=== PATIENT | male | born 1970 | race Caucasian/White ===

== ENCOUNTER 2018-07-18 16:24 | Inpatient (IN) | payer OTHER ==
[2018-07-18 20:25] LABS: ADD MAN DIFF? NO
[2018-07-18 20:27] LABS: WHITE BLOOD COUNT 11.6 10^3/ul (4.8-10.8)
[2018-07-18 20:27] LABS: BASOPHILS % 0.3 % (0.0-2.0); EOSINOPHILS % 0.2 % (0.0-7.0); HEMATOCRIT 47.2 % (42.0-52.0); HEMOGLOBIN 15.7 g/dl (14.0-18.0); LYMPHOCYTES # 0.9 10^3/ul (0.8-2.9); LYMPHOCYTES % 7.3 % (15.0-51.0); MEAN CORPUSCULAR HEMOGLOBIN 30.3 pg (29.0-33.0); MEAN CORPUSCULAR HGB CONC 33.3 g/dl (32.0-37.0); MEAN CORPUSCULAR VOLUME 91.1 fl (82.0-101.0); MEAN PLATELET VOLUME 10.1 fl (7.4-10.4); MONOCYTE # 1.2 10^3/ul (0.3-0.9); MONOCYTES % 10.2 % (0.0-11.0); NEUTROPHIL # 9.5 10^3/ul (1.6-7.5); NEUTROPHILS % 81.7 % (39.0-77.0); PLATELET COUNT 128 10^3/UL (140-415); RED BLOOD COUNT 5.18 10^6/ul (4.70-6.10); RED CELL DISTRIBUTION WIDTH 12.5 % (11.5-14.5)
[2018-07-18] MEDS: SODIUM CHLORIDE 0.9% 1L BAG IV* (20:29)
[2018-07-18] MEDS: PIPER-TAZO 3.375 GM IV (PMX) 100 ML IVPB ×2 (20:29→20:41)
[2018-07-18] MEDS: ACETAMINOPHEN 325 MG TAB PO (20:29)
[2018-07-18] MEDS: morphine 4 MG/ML VIAL IV (20:30)
[2018-07-18] MEDS: ONDANSETRON 4 MG INJ IV (20:30)
[2018-07-18] MEDS: FAMOTIDINE 20 MG INJ IV (20:30)
[2018-07-18 20:45] LABS: LACTIC ACID 1.5 mmol/L (0.5-2.0)
[2018-07-18 20:47] LABS: ALANINE AMINOTRANSFERASE 15 IU/L (13-69); ALBUMIN 4.4 g/dl (3.3-4.9); ALBUMIN/GLOBULIN RATIO 1.15; ALKALINE PHOSPHATASE 91 IU/L (42-121); ANION GAP 16 (8-16); ASPARTATE AMINO TRANSFERASE 26 IU/L (15-46); BILIRUBIN,INDIRECT 0.7 mg/dl (0-1.1); BILIRUBIN,TOTAL 0.7 mg/dl (0.2-1.3); BLOOD UREA NITROGEN 8 mg/dl (7-20); CALCIUM 9.7 mg/dl (8.4-10.2); CARBON DIOXIDE 21 mmol/L (21-31); CHLORIDE 105 mmol/L (97-110); CREATININE 0.62 mg/dl (0.61-1.24); GLUCOSE 133 mg/dl (70-220); POTASSIUM 4.1 mmol/L (3.5-5.1); SODIUM 138 mmol/L (135-144); TOTAL PROTEIN 8.2 g/dl (6.1-8.1)
[2018-07-18 20:58] LABS: TROPONIN-I < 0.010 ng/ml (0.000-0.120)
[2018-07-18] MEDS: CEFTRIAXONE 1 GM/50 ML (PMX) 50 ML IVPB (21:23)
[2018-07-18] MEDS ORDERED: NACL 0.9% 3 ML SYG IV (21:30)
[2018-07-18 21:48] LABS: ADD UMIC YES; UR ASCORBIC ACID NEGATIVE (NEGATIVE); UR BACTERIA FEW /HPF (NONE SEEN); UR BILIRUBIN (Dip) NEGATIVE (NEGATIVE); UR BLOOD (Dip) 3+ mg/dL (NEGATIVE); UR CLARITY CLOUDY (CLEAR); UR COLOR YELLOW (YELLOW); UR GLUCOSE (Dip) NEGATIVE (NEGATIVE); UR KETONES (Dip) NEGATIVE (NEGATIVE); UR LEUKOCYTE ESTERASE (Dip) 3+ Leu/ul (NEGATIVE); UR NITRITE (Dip) POSITIVE (NEGATIVE); UR RBC > 182 /HPF (0-5); UR TOTAL PROTEIN (Dip) 1+ mg/dl (NEGATIVE); UR UROBILINOGEN (Dip) NEGATIVE (NEGATIVE); UR WBC > 182 /HPF (0-5)
[2018-07-18 22:08] LABS: INR 1.26; PARTIAL THROMBOPLASTIN TIME 26.5 Sec (25.0-35.0); PT RATIO 1.3
[2018-07-18] MEDS: VANCOMYCIN 1.25 GM in SOD CHLORIDE 0.9% 250 ML IVPB (22:30)
[2018-07-18] MEDS ORDERED: MEROPENEM 1 GM/50ML(PMX) 50 ML IVPB (23:00)
[2018-07-18] MEDS ORDERED: VANCOMYCIN IV PER PHARMACY XX (23:00)
[2018-07-19] MEDS: HYDROCODONE/APAP (5/325) TAB PO (00:10)
[2018-07-19] MEDS: SOD CHLORIDE 0.9% 1,000 ML IV (00:53)
[2018-07-19 01:05] LABS: LACTIC ACID 0.6 mmol/L (0.5-2.0)
[2018-07-19] MEDS: MEROPENEM 1 GM/50ML(PMX) 50 ML IVPB ×3 (03:49→20:40)
[2018-07-19] MEDS ORDERED: ACETAMINOPHEN 500 MG TAB PO (05:00)
[2018-07-19] MEDS: GABAPENTIN 400 MG CAP PO ×4 (05:09→20:41)
[2018-07-19 06:08] LABS: ADD MAN DIFF? NO
[2018-07-19] MEDS: VANCOMYCIN 750 MG in SOD CHLORIDE 0.9% 150 ML IVPB ×2 (06:16→14:52)
[2018-07-19 06:51] LABS: ALANINE AMINOTRANSFERASE 23 IU/L (13-69); ALBUMIN 3.2 g/dl (3.3-4.9); ALBUMIN/GLOBULIN RATIO 1.06; ALKALINE PHOSPHATASE 67 IU/L (42-121); ANION GAP 13 (8-16); ASPARTATE AMINO TRANSFERASE 30 IU/L (15-46); BILIRUBIN,INDIRECT 0.6 mg/dl (0-1.1); BILIRUBIN,TOTAL 0.6 mg/dl (0.2-1.3); BLOOD UREA NITROGEN 7 mg/dl (7-20); CALCIUM 7.9 mg/dl (8.4-10.2); CARBON DIOXIDE 19 mmol/L (21-31); CHLORIDE 112 mmol/L (97-110); CHOL/HDL RATIO 6.4 RATIO; CHOLESTEROL 154 mg/dl (100-200); CREATININE 0.54 mg/dl (0.61-1.24); GLUCOSE 100 mg/dl (70-220); HDL CHOLESTEROL 24 mg/dl (27-67); LDL CHOLESTEROL,CALCULATED 113 mg/dl; MAGNESIUM 1.9 mg/dl (1.7-2.5); POTASSIUM 3.8 mmol/L (3.5-5.1); SODIUM 140 mmol/L (135-144); TOTAL PROTEIN 6.2 g/dl (6.1-8.1); TRIGLYCERIDES 85 mg/dl (0-149)
[2018-07-19 07:00] LABS: HEMOGLOBIN A1C 5.4 % (0-5.9)
[2018-07-19] MEDS: DOCUSATE SODIUM 100 MG CAP PO ×2 (08:54→20:50)
[2018-07-19] MEDS: FISH OIL 1,000 MG CAP PO ×3 (08:54→20:41)
[2018-07-19] MEDS: GEMFIBROZIL 600 MG TAB PO ×2 (08:54→20:42)
[2018-07-19] MEDS: SENNA TAB PO (08:54)
[2018-07-19] MEDS: NIACIN 500 MG TAB PO (08:55)
[2018-07-19] MEDS: morphine 2 MG INJ IV ×4 (08:58→21:26)
[2018-07-19] MEDS: TOLTERODINE 2 MG TAB PO (09:00)
[2018-07-19] MEDS ORDERED: GLUCAGON 1 MG INJ IM (09:00)
[2018-07-19] MEDS ORDERED: DEXTROSE 50% 50 ML SYRINGE IV ×2 (09:00)
[2018-07-19] MEDS ORDERED: GLUCOSE GEL 15 GRAM TUBE BUCCAL (09:00)
[2018-07-19] MEDS ORDERED: GLUCOSE GEL 15 GRAM TUBE PO ×2 (09:00)
[2018-07-19 09:02] LABS: WHITE BLOOD COUNT 6.9 10^3/ul (4.8-10.8)
[2018-07-19 09:02] LABS: ABNORMAL IP MESSAGE 1; BASOPHILS % 0.4 % (0.0-2.0); EOSINOPHILS % 0.3 % (0.0-7.0); HEMATOCRIT 39.9 % (42.0-52.0); HEMOGLOBIN 13.3 g/dl (14.0-18.0); LYMPHOCYTES # 0.5 10^3/ul (0.8-2.9); LYMPHOCYTES % 7.4 % (15.0-51.0); MEAN CORPUSCULAR HEMOGLOBIN 30.8 pg (29.0-33.0); MEAN CORPUSCULAR HGB CONC 33.3 g/dl (32.0-37.0); MEAN CORPUSCULAR VOLUME 92.4 fl (82.0-101.0); MEAN PLATELET VOLUME 9.9 fl (7.4-10.4); MONOCYTE # 0.7 10^3/ul (0.3-0.9); MONOCYTES % 10.2 % (0.0-11.0); NEUTROPHIL # 5.6 10^3/ul (1.6-7.5); NEUTROPHILS % 81.3 % (39.0-77.0); PLATELET COUNT 93 10^3/UL (140-415); POSITIVE DIFF @See below; RED BLOOD COUNT 4.32 10^6/ul (4.70-6.10); RED CELL DISTRIBUTION WIDTH 12.5 % (11.5-14.5)
[2018-07-19] MEDS: INSULIN ASPART [NOVOLOG] 3 ML PEN SC ×3 (09:45→17:08)
[2018-07-19] MEDS: INSULIN GLARGINE [LANTus] (100 UNITS/ML) SYG SC (12:19)
[2018-07-19] MEDS: TOLTERODINE 1 MG TAB PO ×2 (13:00→23:04)
[2018-07-19] MEDS: ACETAMINOPHEN 325 MG TAB PO (14:59)
[2018-07-19] MEDS: SOD CHLORIDE 0.9% 500 ML IV (16:59)
[2018-07-19 18:16] LABS: LACTIC ACID 0.9 mmol/L (0.5-2.0)
[2018-07-19] MEDS: MIRTAZAPINE 15 MG TAB PO (20:41)
[2018-07-19 22:50] LABS: VANCOMYCIN,TROUGH 8.1 ug/ml (10.0-20.0)
[2018-07-19] MEDS: VANCOMYCIN 1 GM 250 ML IVPB (23:16)
[2018-07-20] MEDS: MEROPENEM 1 GM/50ML(PMX) 50 ML IVPB ×3 (03:24→19:56)
[2018-07-20 05:08] LABS: ADD MAN DIFF? NO
[2018-07-20 05:09] LABS: ABNORMAL IP MESSAGE 1; BASOPHILS % 0.6 % (0.0-2.0); HEMATOCRIT 36.8 % (42.0-52.0); HEMOGLOBIN 12.3 g/dl (14.0-18.0); LYMPHOCYTES # 0.7 10^3/ul (0.8-2.9); MEAN CORPUSCULAR HEMOGLOBIN 30.5 pg (29.0-33.0); MEAN CORPUSCULAR HGB CONC 33.4 g/dl (32.0-37.0); MEAN CORPUSCULAR VOLUME 91.3 fl (82.0-101.0); MEAN PLATELET VOLUME 9.9 fl (7.4-10.4); MONOCYTE # 0.5 10^3/ul (0.3-0.9); MONOCYTES % 15.2 % (0.0-11.0); NEUTROPHILS % 61.9 % (39.0-77.0); PLATELET COUNT 76 10^3/UL (140-415); POSITIVE DIFF @See below; RED BLOOD COUNT 4.03 10^6/ul (4.70-6.10); RED CELL DISTRIBUTION WIDTH 12.6 % (11.5-14.5)
[2018-07-20 05:09] LABS: WHITE BLOOD COUNT 3.2 10^3/ul (4.8-10.8)
[2018-07-20 05:50] LABS: ANION GAP 13 (8-16); BLOOD UREA NITROGEN 6 mg/dl (7-20); CALCIUM 7.8 mg/dl (8.4-10.2); CARBON DIOXIDE 22 mmol/L (21-31); CHLORIDE 108 mmol/L (97-110); GLUCOSE 98 mg/dl (70-220); MAGNESIUM 2.2 mg/dl (1.7-2.5); PHOSPHORUS 2.6 mg/dl (2.5-4.9); POTASSIUM 3.5 mmol/L (3.5-5.1); SODIUM 139 mmol/L (135-144)
[2018-07-20] MEDS: morphine 2 MG INJ IV ×5 (06:11→23:37)
[2018-07-20] MEDS: VANCOMYCIN 1 GM 250 ML IVPB ×3 (06:14→23:35)
[2018-07-20] MEDS: INSULIN ASPART [NOVOLOG] 3 ML PEN SC ×3 (07:30→17:38)
[2018-07-20] MEDS: GEMFIBROZIL 600 MG TAB PO ×2 (08:07→20:00)
[2018-07-20] MEDS: GABAPENTIN 400 MG CAP PO ×3 (08:07→20:00)
[2018-07-20] MEDS: TOLTERODINE 1 MG TAB PO ×2 (08:07→20:00)
[2018-07-20] MEDS: NIACIN 500 MG TAB PO (08:07)
[2018-07-20] MEDS: FISH OIL 1,000 MG CAP PO ×2 (08:07→20:00)
[2018-07-20] MEDS: SENNA TAB PO (08:07)
[2018-07-20] MEDS: DOCUSATE SODIUM 100 MG CAP PO ×2 (08:08→21:00)
[2018-07-20] MEDS: ENOXAPARIN 40 MG/0.4 ML SYG SC ×2 (08:11→10:45)
[2018-07-20] MEDS: ONDANSETRON 4 MG INJ IV (08:14)
[2018-07-20] MEDS: INSULIN GLARGINE [LANTus] (100 UNITS/ML) SYG SC (08:23)
[2018-07-20] MEDS: MIRTAZAPINE 15 MG TAB PO (20:00)
[2018-07-20] MEDS: ACETAMINOPHEN 325 MG TAB PO (20:07)
[2018-07-20] MEDS: HYDROCODONE/APAP (5/325) TAB PO (22:01)
[2018-07-21] MEDS: MEROPENEM 1 GM/50ML(PMX) 50 ML IVPB (04:53)
[2018-07-21 06:17] LABS: ADD MAN DIFF? NO
[2018-07-21 06:19] LABS: ABNORMAL IP MESSAGE 1; BASOPHILS % 0.4 % (0.0-2.0); EOSINOPHILS # 0.2 10^3/ul (0.0-0.5); EOSINOPHILS % 5.8 % (0.0-7.0); HEMATOCRIT 39.2 % (42.0-52.0); HEMOGLOBIN 13.1 g/dl (14.0-18.0); LYMPHOCYTES # 0.6 10^3/ul (0.8-2.9); LYMPHOCYTES % 24.2 % (15.0-51.0); MEAN CORPUSCULAR HEMOGLOBIN 30.5 pg (29.0-33.0); MEAN CORPUSCULAR HGB CONC 33.4 g/dl (32.0-37.0); MEAN CORPUSCULAR VOLUME 91.2 fl (82.0-101.0); MEAN PLATELET VOLUME 10.3 fl (7.4-10.4); MONOCYTE # 0.6 10^3/ul (0.3-0.9); MONOCYTES % 23.1 % (0.0-11.0); NEUTROPHIL # 1.2 10^3/ul (1.6-7.5); NEUTROPHILS % 46.1 % (39.0-77.0); POSITIVE DIFF @See below; RED CELL DISTRIBUTION WIDTH 12.7 % (11.5-14.5)
[2018-07-21 06:19] LABS: WHITE BLOOD COUNT 2.6 10^3/ul (4.8-10.8)
[2018-07-21 06:35] LABS: PLATELET COUNT 78 10^3/UL (140-415)
[2018-07-21] MEDS: morphine 2 MG INJ IV (06:35)
[2018-07-21] MEDS: VANCOMYCIN 1 GM 250 ML IVPB ×3 (06:35→23:01)
[2018-07-21 06:54] LABS: MAGNESIUM 2.3 mg/dl (1.7-2.5)
[2018-07-21 06:56] LABS: VANCOMYCIN,TROUGH 13.6 ug/ml (10.0-20.0)
[2018-07-21 07:03] LABS: ALANINE AMINOTRANSFERASE 63 IU/L (13-69); ALBUMIN 3.2 g/dl (3.3-4.9); ALKALINE PHOSPHATASE 105 IU/L (42-121); ANION GAP 11 (8-16); ASPARTATE AMINO TRANSFERASE 109 IU/L (15-46); BILIRUBIN,INDIRECT 0.3 mg/dl (0-1.1); BILIRUBIN,TOTAL 0.3 mg/dl (0.2-1.3); BLOOD UREA NITROGEN 7 mg/dl (7-20); CALCIUM 7.8 mg/dl (8.4-10.2); CARBON DIOXIDE 23 mmol/L (21-31); CHLORIDE 110 mmol/L (97-110); CREATININE 0.51 mg/dl (0.61-1.24); GLUCOSE 90 mg/dl (70-220); POTASSIUM 3.6 mmol/L (3.5-5.1); SODIUM 140 mmol/L (135-144); TOTAL PROTEIN 6.1 g/dl (6.1-8.1)
[2018-07-21 07:54] LABS: ANISOCYTOSIS 1+ (0-0); BAND NEUTROPHILS #M 0.4 10^3/ul (0.0-0.6); BAND NEUTROPHILS % (M) 17 % (0-4); EOSINOPHILS % (M) 5 % (0-7); GIANT THROMBO% (M) 3 % (0-0); LYMPHOCYTES #M 0.4 10^3/ul (0.8-2.9); LYMPHOCYTES % (M) 19 % (15-51); MICROCYTOSIS 1+ (0-0); MONOCYTE #M 0.5 10^3/ul (0.3-0.9); MONOCYTES % (M) 20 % (0-11); PLATELET ESTIMATE DECREASED; POLYCHROMASIA 2+ (0-0); REACTIVE LYMPHOCYTES% (M) 3 % (0-0); SEG NEUT #M 0.9 10^3/ul (1.6-7.5); SEGMENTED NEUTROPHILS (M) % 36 % (39-77)
[2018-07-21] MEDS: INSULIN GLARGINE [LANTus] (100 UNITS/ML) SYG SC (08:42)
[2018-07-21] MEDS: INSULIN ASPART [NOVOLOG] 3 ML PEN SC ×3 (08:43→17:56)
[2018-07-21] MEDS: DOCUSATE SODIUM 100 MG CAP PO ×2 (09:00→20:22)
[2018-07-21] MEDS: GABAPENTIN 400 MG CAP PO ×3 (09:00→21:33)
[2018-07-21] MEDS: SENNA TAB PO (09:26)
[2018-07-21] MEDS: GEMFIBROZIL 600 MG TAB PO ×2 (09:26→21:33)
[2018-07-21] MEDS: TOLTERODINE 1 MG TAB PO (09:26)
[2018-07-21] MEDS: FISH OIL 1,000 MG CAP PO ×2 (09:27→21:33)
[2018-07-21] MEDS: ENOXAPARIN 40 MG/0.4 ML SYG SC (09:37)
[2018-07-21] MEDS: ACETAMINOPHEN 1000MG/100ML IV 100 ML IVPB ×2 (17:22→21:36)
[2018-07-21] MEDS: PIPER-TAZO 3.375 GM IV (PMX) 100 ML IVPB ×2 (17:52→18:00)
[2018-07-21] MEDS: HYDROmorphONE 0.2 MG/ML PCA IV (18:48)
[2018-07-21] MEDS: TOLTERODINE 2 MG TAB PO (21:00)
[2018-07-21] MEDS: MIRTAZAPINE 15 MG TAB PO (21:32)
[2018-07-22] MEDS: PIPER-TAZO 3.375 GM IV (PMX) 100 ML IVPB ×2 (01:01→05:44)
[2018-07-22] MEDS: HYDROmorphONE 0.2 MG/ML PCA IV ×2 (01:53→10:32)
[2018-07-22] MEDS: ACETAMINOPHEN 1000MG/100ML IV 100 ML IVPB ×4 (03:41→20:51)
[2018-07-22] MEDS: DEXTROSE 5%-0.45% NACL 1,000 ML IV ×2 (06:30→19:50)
[2018-07-22] MEDS: VANCOMYCIN 1 GM 250 ML IVPB ×3 (06:51→22:45)
[2018-07-22] MEDS ORDERED: LIDOCAINE 2% (SDV) 5 ML INJ (07:00)
[2018-07-22] MEDS: INSULIN ASPART [NOVOLOG] 3 ML PEN SC ×4 (07:30→18:04)
[2018-07-22] MEDS ORDERED: NEOSTIGMINE 3 MG/3 ML SYRINGE (08:33)
[2018-07-22] MEDS ORDERED: GLYCOPYRROLATE 0.4 MG INJ (08:34)
[2018-07-22] MEDS ORDERED: PROPOFOL 20 ML (08:40)
[2018-07-22] MEDS ORDERED: ROCURONIUM 50 MG INJ (08:40)
[2018-07-22] MEDS: ONDANSETRON 4 MG INJ IV ×2 (08:53→16:54)
[2018-07-22] MEDS ORDERED: DIPHENHYDRAMINE 50 MG INJ IV (09:00)
[2018-07-22] MEDS ORDERED: ONDANSETRON 4 MG INJ IV (09:00)
[2018-07-22] MEDS ORDERED: MIDAZOLAM 1 MG/ML 2 ML INJ IV (09:00)
[2018-07-22] MEDS ORDERED: hydrALAzine 20 MG INJ IV (09:00)
[2018-07-22] MEDS ORDERED: EPHEDrine SULFATE 50 MG/5 ML SYG IV (09:00)
[2018-07-22] MEDS ORDERED: METOCLOPRAMIDE 10 MG INJ IV (09:00)
[2018-07-22] MEDS ORDERED: ALBUTEROL 0.083% (NEB) 2.5 MG/3 ML AMP HHN (09:00)
[2018-07-22] MEDS ORDERED: OXYCODONE/ACETAMINOPHEN (5/325) TAB PO ×2 (09:00)
[2018-07-22] MEDS ORDERED: MEPERIDINE 25 MG INJ IV (09:00)
[2018-07-22] MEDS ORDERED: HYDROmorphONE 1 MG/5 ML IV SYRINGE IV ×3 (09:00)
[2018-07-22] MEDS ORDERED: LABETALOL HCL 20MG INJ IV (09:00)
[2018-07-22] MEDS: DOCUSATE SODIUM 100 MG CAP PO ×2 (10:00→20:52)
[2018-07-22] MEDS: GEMFIBROZIL 600 MG TAB PO ×2 (10:07→20:53)
[2018-07-22] MEDS: GABAPENTIN 400 MG CAP PO ×3 (10:07→20:52)
[2018-07-22] MEDS: FISH OIL 1,000 MG CAP PO ×2 (10:08→20:53)
[2018-07-22] MEDS: INSULIN GLARGINE [LANTus] (100 UNITS/ML) SYG SC (10:11)
[2018-07-22] MEDS: ENOXAPARIN 40 MG/0.4 ML SYG SC (10:11)
[2018-07-22] MEDS: SENNA TAB PO (10:16)
[2018-07-22] MEDS: TOLTERODINE 2 MG TAB PO ×2 (10:17→20:58)
[2018-07-22 11:42] LABS: ADD MAN DIFF? NO
[2018-07-22 11:44] LABS: ABNORMAL IP MESSAGE 1; BASOPHILS % 0.6 % (0.0-2.0); EOSINOPHILS % 0.9 % (0.0-7.0); HEMATOCRIT 38.6 % (42.0-52.0); HEMOGLOBIN 12.9 g/dl (14.0-18.0); LYMPHOCYTES # 0.7 10^3/ul (0.8-2.9); LYMPHOCYTES % 21.5 % (15.0-51.0); MEAN CORPUSCULAR HEMOGLOBIN 30.1 pg (29.0-33.0); MEAN CORPUSCULAR HGB CONC 33.4 g/dl (32.0-37.0); MEAN PLATELET VOLUME 9.8 fl (7.4-10.4); MONOCYTE # 0.4 10^3/ul (0.3-0.9); MONOCYTES % 12.4 % (0.0-11.0); NEUTROPHIL # 2.1 10^3/ul (1.6-7.5); NEUTROPHILS % 64.3 % (39.0-77.0); PLATELET COUNT 96 10^3/UL (140-415); POSITIVE DIFF @See below; RED BLOOD COUNT 4.29 10^6/ul (4.70-6.10); RED CELL DISTRIBUTION WIDTH 12.6 % (11.5-14.5)
[2018-07-22 11:44] LABS: WHITE BLOOD COUNT 3.3 10^3/ul (4.8-10.8)
[2018-07-22 12:12] LABS: ANION GAP 15 (8-16); BLOOD UREA NITROGEN 6 mg/dl (7-20); CALCIUM 7.7 mg/dl (8.4-10.2); CARBON DIOXIDE 22 mmol/L (21-31); CHLORIDE 109 mmol/L (97-110); CREATININE 0.44 mg/dl (0.61-1.24); GLUCOSE 108 mg/dl (70-220); POTASSIUM 3.5 mmol/L (3.5-5.1); SODIUM 142 mmol/L (135-144)
[2018-07-22] MEDS: AMPICILLIN 1 GM/NS (PMX) 50 ML IVPB (18:34)
[2018-07-22] MEDS: PANTOPRAZOLE (EC) 40 MG TAB PO (18:42)
[2018-07-22] MEDS: MIRTAZAPINE 15 MG TAB PO (20:53)
[2018-07-22] MEDS: L ACIDOPHIL/B LACTIS/B LONGUM CAPSULE PO (20:58)
[2018-07-23] MEDS: AMPICILLIN 1 GM/NS (PMX) 50 ML IVPB ×4 (00:50→17:32)
[2018-07-23] MEDS: ACETAMINOPHEN 1000MG/100ML IV 100 ML IVPB ×4 (02:27→21:25)
[2018-07-23] MEDS: DEXTROSE 5%-0.45% NACL 1,000 ML IV ×3 (02:57→23:17)
[2018-07-23] MEDS: PANTOPRAZOLE (EC) 40 MG TAB PO (05:51)
[2018-07-23] MEDS: VANCOMYCIN 1 GM 250 ML IVPB ×3 (06:32→23:17)
[2018-07-23] MEDS: INSULIN ASPART [NOVOLOG] 3 ML PEN SC ×3 (07:30→17:30)
[2018-07-23 07:44] LABS: ADD MAN DIFF? NO
[2018-07-23 08:19] LABS: ANION GAP 11 (8-16); BLOOD UREA NITROGEN 5 mg/dl (7-20); CALCIUM 7.8 mg/dl (8.4-10.2); CARBON DIOXIDE 23 mmol/L (21-31); CHLORIDE 109 mmol/L (97-110); CREATININE 0.37 mg/dl (0.61-1.24); GLUCOSE 86 mg/dl (70-220); POTASSIUM 3.7 mmol/L (3.5-5.1); SODIUM 139 mmol/L (135-144)
[2018-07-23] MEDS: ONDANSETRON 4 MG INJ IV (08:54)
[2018-07-23] MEDS: FISH OIL 1,000 MG CAP PO ×2 (08:57→21:29)
[2018-07-23] MEDS: L ACIDOPHIL/B LACTIS/B LONGUM CAPSULE PO ×2 (08:57→21:28)
[2018-07-23] MEDS: GABAPENTIN 400 MG CAP PO ×3 (08:57→21:26)
[2018-07-23] MEDS: SENNA TAB PO (08:57)
[2018-07-23] MEDS: GEMFIBROZIL 600 MG TAB PO ×2 (08:58→21:28)
[2018-07-23] MEDS: TOLTERODINE 2 MG TAB PO ×2 (08:58→21:27)
[2018-07-23] MEDS: DOCUSATE SODIUM 100 MG CAP PO ×2 (08:58→21:00)
[2018-07-23] MEDS: ENOXAPARIN 40 MG/0.4 ML SYG SC (09:09)
[2018-07-23] MEDS: INSULIN GLARGINE [LANTus] (100 UNITS/ML) SYG SC (09:09)
[2018-07-23] MEDS: HYDROmorphONE 2 MG TAB PO ×4 (09:16→22:30)
[2018-07-23 10:40] LABS: BASOPHILS % 0.5 % (0.0-2.0); EOSINOPHILS # 0.1 10^3/ul (0.0-0.5); EOSINOPHILS % 2.2 % (0.0-7.0); HEMATOCRIT 39.8 % (42.0-52.0); HEMOGLOBIN 13.3 g/dl (14.0-18.0); LYMPHOCYTES # 0.8 10^3/ul (0.8-2.9); LYMPHOCYTES % 18.4 % (15.0-51.0); MEAN CORPUSCULAR HEMOGLOBIN 29.9 pg (29.0-33.0); MEAN CORPUSCULAR HGB CONC 33.4 g/dl (32.0-37.0); MEAN CORPUSCULAR VOLUME 89.4 fl (82.0-101.0); MEAN PLATELET VOLUME 9.9 fl (7.4-10.4); MONOCYTE # 0.3 10^3/ul (0.3-0.9); MONOCYTES % 7.5 % (0.0-11.0); NEUTROPHIL # 2.9 10^3/ul (1.6-7.5); NEUTROPHILS % 70.9 % (39.0-77.0); PLATELET COUNT 117 10^3/UL (140-415); RED BLOOD COUNT 4.45 10^6/ul (4.70-6.10); RED CELL DISTRIBUTION WIDTH 12.6 % (11.5-14.5)
[2018-07-23 10:40] LABS: WHITE BLOOD COUNT 4.1 10^3/ul (4.8-10.8)
[2018-07-23] MEDS: MIRTAZAPINE 15 MG TAB PO (21:28)
[2018-07-23 22:50] LABS: VANCOMYCIN,TROUGH 11.6 ug/ml (10.0-20.0)
[2018-07-24] MEDS: AMPICILLIN 1 GM/NS (PMX) 50 ML IVPB ×3 (00:44→12:31)
[2018-07-24] MEDS: ACETAMINOPHEN 1000MG/100ML IV 100 ML IVPB ×2 (02:39→09:08)
[2018-07-24] MEDS: PANTOPRAZOLE (EC) 40 MG TAB PO (05:40)
[2018-07-24] MEDS: VANCOMYCIN 1 GM 250 ML IVPB (06:37)
[2018-07-24] MEDS: GEMFIBROZIL 600 MG TAB PO (07:56)
[2018-07-24] MEDS: DOCUSATE SODIUM 100 MG CAP PO (07:56)
[2018-07-24] MEDS: SENNA TAB PO (07:56)
[2018-07-24] MEDS: L ACIDOPHIL/B LACTIS/B LONGUM CAPSULE PO (07:56)
[2018-07-24] MEDS: TOLTERODINE 2 MG TAB PO (07:56)
[2018-07-24] MEDS: FISH OIL 1,000 MG CAP PO (07:56)
[2018-07-24] MEDS: INSULIN ASPART [NOVOLOG] 3 ML PEN SC ×2 (07:58→12:42)
[2018-07-24] MEDS: INSULIN GLARGINE [LANTus] (100 UNITS/ML) SYG SC (07:59)
[2018-07-24] MEDS: ENOXAPARIN 40 MG/0.4 ML SYG SC (08:00)
[2018-07-24 08:20] LABS: ADD MAN DIFF? NO
[2018-07-24 08:22] LABS: WHITE BLOOD COUNT 3.6 10^3/ul (4.8-10.8)
[2018-07-24 08:22] LABS: BASOPHILS % 1.1 % (0.0-2.0); EOSINOPHILS # 0.2 10^3/ul (0.0-0.5); EOSINOPHILS % 5.8 % (0.0-7.0); HEMATOCRIT 38.8 % (42.0-52.0); HEMOGLOBIN 13.3 g/dl (14.0-18.0); LYMPHOCYTES % 27.5 % (15.0-51.0); MEAN CORPUSCULAR HEMOGLOBIN 30.9 pg (29.0-33.0); MEAN CORPUSCULAR HGB CONC 34.3 g/dl (32.0-37.0); MONOCYTE # 0.3 10^3/ul (0.3-0.9); MONOCYTES % 7.7 % (0.0-11.0); NEUTROPHIL # 2.1 10^3/ul (1.6-7.5); NEUTROPHILS % 57.6 % (39.0-77.0); PLATELET COUNT 120 10^3/UL (140-415); RED BLOOD COUNT 4.31 10^6/ul (4.70-6.10); RED CELL DISTRIBUTION WIDTH 12.4 % (11.5-14.5)
[2018-07-24 08:53] LABS: ANION GAP 10 (8-16); BLOOD UREA NITROGEN 4 mg/dl (7-20); CARBON DIOXIDE 25 mmol/L (21-31); CHLORIDE 111 mmol/L (97-110); CREATININE 0.45 mg/dl (0.61-1.24); GLUCOSE 111 mg/dl (70-220); POTASSIUM 3.7 mmol/L (3.5-5.1); SODIUM 142 mmol/L (135-144)
[2018-07-24] MEDS: GABAPENTIN 400 MG CAP PO ×2 (09:00→12:31)
[2018-07-24] MEDS: HYDROmorphONE 2 MG TAB PO ×2 (09:33→13:40)
[2018-07-24] MEDS: DEXTROSE 5%-0.45% NACL 1,000 ML IV (11:50)
[2018-07-24 12:37] LABS: VANCOMYCIN,TROUGH 16.6 ug/ml (10.0-20.0)
== END 2018-07-24 14:30 | disposition home health service (06) | DRG 668 ==
LOC: FTE 16:24 → 2NE 21:09
PROC: 0TC68ZZ Extirpation of Matter from Right Ureter, Via Natural or Artificial Opening Endoscopic (ICD-10-PCS; principal; 2018-07-22 07:30)
PROC: 0TP98DZ Removal of Intraluminal Device from Ureter, Via Natural or Artificial Opening Endoscopic (ICD-10-PCS; 2018-07-22 07:30)
PROC: 0T768DZ Dilation of Right Ureter with Intraluminal Device, Via Natural or Artificial Opening Endoscopic (ICD-10-PCS; 2018-07-22 07:30)
DX: T83.511A Infection and inflammatory reaction due to indwelling urethral catheter, initial encounter (principal); A41.1 Sepsis due to other specified staphylococcus; N10 Acute pyelonephritis; D61.818 Other pancytopenia; G82.20 Paraplegia, unspecified; N13.6 Pyonephrosis; N20.1 Calculus of ureter; S34.10 Unspecified injury to lumbar spinal cord; N31.8 Other neuromuscular dysfunction of bladder; G47.30 Sleep apnea, unspecified; E11.9 Type 2 diabetes mellitus without complications; E78.5 Hyperlipidemia, unspecified; Z99.3 Dependence on wheelchair; Q77.4 Achondroplasia; R23.2 Flushing; R33.8 Other retention of urine; B96.20 Unspecified Escherichia coli [E. coli] as the cause of diseases classified elsewhere; B95.2 Enterococcus as the cause of diseases classified elsewhere; B96.89 Other specified bacterial agents as the cause of diseases classified elsewhere
CPT/HCPCS: 36415; 71045; 74176; 74430; 80048; 80053; 80061; 80202; 81001; 82962; 83036; 83605; 83735; 84100; 84443; 84484; 85025; 85610; 85730; 87040; 87086; 88300; 93005; 94660; 96365; 96375; 99285-25

== ENCOUNTER 2019-03-27 08:56 | Emergency (ER) | payer OTHER ==
[2019-03-27 10:50] LABS: ADD MAN DIFF? NO
[2019-03-27 10:52] LABS: WHITE BLOOD COUNT 6.9 10^3/ul (4.8-10.8)
[2019-03-27 10:52] LABS: BASOPHILS % 0.6 % (0.0-2.0); EOSINOPHILS % 0.4 % (0.0-7.0); HEMATOCRIT 45.8 % (42.0-52.0); HEMOGLOBIN 15.7 g/dl (14.0-18.0); LYMPHOCYTES % 14.5 % (15.0-51.0); MEAN CORPUSCULAR HEMOGLOBIN 30.3 pg (29.0-33.0); MEAN CORPUSCULAR HGB CONC 34.3 g/dl (32.0-37.0); MEAN CORPUSCULAR VOLUME 88.2 fl (82.0-101.0); MEAN PLATELET VOLUME 9.8 fl (7.4-10.4); MONOCYTE # 0.6 10^3/ul (0.3-0.9); MONOCYTES % 9.2 % (0.0-11.0); NEUTROPHIL # 5.1 10^3/ul (1.6-7.5); NEUTROPHILS % 74.9 % (39.0-77.0); PLATELET COUNT 159 10^3/UL (140-415); RED BLOOD COUNT 5.19 10^6/ul (4.70-6.10); RED CELL DISTRIBUTION WIDTH 12.2 % (11.5-14.5)
[2019-03-27 11:02] LABS: ADD UMIC YES; UR AMORPHOUS CRYSTAL FEW /HPF (NONE SEEN); UR ASCORBIC ACID NEGATIVE (NEGATIVE); UR BACTERIA FEW /HPF (NONE SEEN); UR BILIRUBIN (Dip) NEGATIVE (NEGATIVE); UR BLOOD (Dip) 1+ mg/dL (NEGATIVE); UR CLARITY CLOUDY (CLEAR); UR COLOR YELLOW (YELLOW); UR GLUCOSE (Dip) NEGATIVE (NEGATIVE); UR KETONES (Dip) NEGATIVE (NEGATIVE); UR LEUKOCYTE ESTERASE (Dip) 2+ Leu/ul (NEGATIVE); UR MUCUS FEW /HPF (NONE SEEN); UR NITRITE (Dip) POSITIVE (NEGATIVE); UR RBC 6 /HPF (0-5); UR SPECIFIC GRAVITY (Dip) 1.015 (1.003-1.030); UR TOTAL PROTEIN (Dip) NEGATIVE (NEGATIVE); UR UROBILINOGEN (Dip) NEGATIVE (NEGATIVE); UR WBC 13 /HPF (0-5)
[2019-03-27] MEDS: SOD CHLORIDE 0.9% 1,000 ML IV (11:03)
[2019-03-27] MEDS: ONDANSETRON 4 MG INJ IV (11:04)
[2019-03-27 11:12] LABS: ALANINE AMINOTRANSFERASE 36 IU/L (13-69); ALKALINE PHOSPHATASE 105 IU/L (42-121); ANION GAP 13 (5-13); ASPARTATE AMINO TRANSFERASE 34 IU/L (15-46); BILIRUBIN,INDIRECT 0.8 mg/dl (0-1.1); BILIRUBIN,TOTAL 0.8 mg/dl (0.2-1.3); BLOOD UREA NITROGEN 14 mg/dl (7-20); CALCIUM 9.7 mg/dl (8.4-10.2); CARBON DIOXIDE 21 mmol/L (21-31); CHLORIDE 108 mmol/L (97-110); CREATININE 0.54 mg/dl (0.61-1.24); Estimated GFR > 60 mL/min (>60); GLUCOSE 142 mg/dl (70-220); LIPASE 35 U/L (23-300); POTASSIUM 4.1 mmol/L (3.5-5.1); SODIUM 142 mmol/L (135-144)
[2019-03-27 11:13] LABS: ALBUMIN 4.4 g/dl (3.3-4.9); ALBUMIN/GLOBULIN RATIO 1.29; TOTAL PROTEIN 7.8 g/dl (6.1-8.1)
[2019-03-27 11:24] LABS: TROPONIN-I < 0.012 ng/ml (0.000-0.120)
[2019-03-27] MEDS: SOD CHLORIDE 0.9% 100 ML (11:34)
[2019-03-27] MEDS: IOHEXOL 300MG/ML 150 ML BTL (11:34)
[2019-03-27] MEDS: morphine 4 MG/ML VIAL IV (12:22)
[2019-03-27] MEDS: CEFTRIAXONE 1 GM/50 ML (PMX) 50 ML IVPB (14:48)
== END 2019-03-27 16:40 | disposition home or self-care (01) ==
LOC: E/R 08:56
DX: N30.00 Acute cystitis without hematuria (principal); E11.9 Type 2 diabetes mellitus without complications; F17.210 Nicotine dependence, cigarettes, uncomplicated; Z79.4 Long term (current) use of insulin
CPT/HCPCS: 36415; 71045; 74177; 80053; 81001; 83690; 84484; 85025; 93005; 96374; 96375; 99285-25

== ENCOUNTER 2019-03-30 09:25 | Emergency (ER) | payer OTHER ==
[2019-03-30] MEDS: KETOROLAC 15 MG INJ IV (12:30)
[2019-03-30] MEDS: ONDANSETRON 4 MG INJ IV ×2 (12:30→15:17)
[2019-03-30 12:31] LABS: ADD MAN DIFF? NO
[2019-03-30 12:36] LABS: BASOPHILS % 0.5 % (0.0-2.0); EOSINOPHILS % 0.3 % (0.0-7.0); HEMATOCRIT 43.5 % (42.0-52.0); HEMOGLOBIN 14.9 g/dl (14.0-18.0); LYMPHOCYTES # 1.2 10^3/ul (0.8-2.9); LYMPHOCYTES % 19.9 % (15.0-51.0); MEAN CORPUSCULAR HEMOGLOBIN 30.5 pg (29.0-33.0); MEAN CORPUSCULAR HGB CONC 34.3 g/dl (32.0-37.0); MEAN CORPUSCULAR VOLUME 89.1 fl (82.0-101.0); MEAN PLATELET VOLUME 9.6 fl (7.4-10.4); MONOCYTE # 0.5 10^3/ul (0.3-0.9); NEUTROPHIL # 4.2 10^3/ul (1.6-7.5); PLATELET COUNT 153 10^3/UL (140-415); RED BLOOD COUNT 4.88 10^6/ul (4.70-6.10); RED CELL DISTRIBUTION WIDTH 12.2 % (11.5-14.5)
[2019-03-30 12:57] LABS: ALANINE AMINOTRANSFERASE 31 IU/L (13-69); ALBUMIN 4.4 g/dl (3.3-4.9); ALBUMIN/GLOBULIN RATIO 1.46; ALKALINE PHOSPHATASE 76 IU/L (42-121); ANION GAP 13 (5-13); ASPARTATE AMINO TRANSFERASE 31 IU/L (15-46); BILIRUBIN,INDIRECT 0.4 mg/dl (0-1.1); BILIRUBIN,TOTAL 0.4 mg/dl (0.2-1.3); BLOOD UREA NITROGEN 10 mg/dl (7-20); CALCIUM 9.1 mg/dl (8.4-10.2); CARBON DIOXIDE 21 mmol/L (21-31); CHLORIDE 108 mmol/L (97-110); CREATININE 0.52 mg/dl (0.61-1.24); Estimated GFR > 60 mL/min (>60); GLUCOSE 110 mg/dl (70-220); LIPASE 24 U/L (23-300); POTASSIUM 3.7 mmol/L (3.5-5.1); SODIUM 142 mmol/L (135-144); TOTAL PROTEIN 7.4 g/dl (6.1-8.1)
[2019-03-30] MEDS: SOD CHLORIDE 0.9% 500 ML IV ×2 (13:21)
[2019-03-30 14:37] LABS: URINE BLOOD (Dip) POC 2+ (NEGATIVE); URINE GLUCOSE (Dip) POC Negative (NEGATIVE); URINE KETONES (Dip) POC 1+ (NEGATIVE); URINE LEUKOCYTE EST (Dip) POC Trace (NEGATIVE); URINE NITRITE (Dip) POC Negative (NEGATIVE); URINE TOTAL PROTEIN POC Negative (NEGATIVE)
[2019-03-30 14:51] LABS: ADD UMIC YES; UR ASCORBIC ACID NEGATIVE (NEGATIVE); UR BILIRUBIN (Dip) NEGATIVE (NEGATIVE); UR BLOOD (Dip) 3+ mg/dL (NEGATIVE); UR CLARITY CLEAR (CLEAR); UR COLOR YELLOW (YELLOW); UR GLUCOSE (Dip) NEGATIVE (NEGATIVE); UR KETONES (Dip) 2+ mg/dL (NEGATIVE); UR LEUKOCYTE ESTERASE (Dip) TRACE Leu/ul (NEGATIVE); UR MUCUS FEW /HPF (NONE SEEN); UR NITRITE (Dip) NEGATIVE (NEGATIVE); UR RBC 60 /HPF (0-5); UR SPECIFIC GRAVITY (Dip) 1.017 (1.003-1.030); UR TOTAL PROTEIN (Dip) NEGATIVE (NEGATIVE); UR UROBILINOGEN (Dip) NEGATIVE (NEGATIVE); UR WBC 4 /HPF (0-5)
== END 2019-03-30 16:28 | disposition home or self-care (01) ==
LOC: E/R 09:25
DX: R31.9 Hematuria, unspecified (principal); F17.210 Nicotine dependence, cigarettes, uncomplicated; E11.9 Type 2 diabetes mellitus without complications; E86.0 Dehydration; Z79.4 Long term (current) use of insulin
CPT/HCPCS: 36415; 80053; 81001; 81003; 83690; 85025; 87086; 96361; 96374; 96375; 96376; 99284-25

== ENCOUNTER 2019-06-17 09:33 | Emergency (ER) | payer OTHER ==
[2019-06-17 10:20] LABS: URINE BLOOD (Dip) POC 2+ (NEGATIVE); URINE GLUCOSE (Dip) POC Negative (NEGATIVE); URINE KETONES (Dip) POC Negative (NEGATIVE); URINE LEUKOCYTE EST (Dip) POC Trace (NEGATIVE); URINE NITRITE (Dip) POC Negative (NEGATIVE); URINE TOTAL PROTEIN POC Negative (NEGATIVE)
[2019-06-17 10:20] LABS: URINE PH (Dip) POC 5.5 (5.0-8.5)
[2019-06-17 10:55] LABS: ADD UMIC YES; UR ASCORBIC ACID NEGATIVE (NEGATIVE); UR BACTERIA FEW /HPF (NONE SEEN); UR BILIRUBIN (Dip) NEGATIVE (NEGATIVE); UR BLOOD (Dip) 3+ mg/dL (NEGATIVE); UR CLARITY CLEAR (CLEAR); UR COLOR YELLOW (YELLOW); UR GLUCOSE (Dip) NEGATIVE (NEGATIVE); UR KETONES (Dip) NEGATIVE (NEGATIVE); UR LEUKOCYTE ESTERASE (Dip) 3+ Leu/ul (NEGATIVE); UR NITRITE (Dip) NEGATIVE (NEGATIVE); UR RBC 77 /HPF (0-5); UR SPECIFIC GRAVITY (Dip) 1.009 (1.003-1.030); UR TOTAL PROTEIN (Dip) NEGATIVE (NEGATIVE); UR UROBILINOGEN (Dip) NEGATIVE (NEGATIVE); UR WBC 47 /HPF (0-5)
[2019-06-17] MEDS: LEVOFLOXACIN 750 MG TABLET PO (13:22)
== END 2019-06-17 14:41 | disposition home or self-care (01) ==
LOC: E/R 09:33
DX: T83.511A Infection and inflammatory reaction due to indwelling urethral catheter, initial encounter (principal); N39.0 Urinary tract infection, site not specified; Y73.2 Prosthetic and other implants, materials and accessory gastroenterology and urology devices associated with adverse incidents; Z79.4 Long term (current) use of insulin; Z87.891 Personal history of nicotine dependence
CPT/HCPCS: 51702; 81001; 81003; 87086; 99283-25